=== PATIENT | female | born 1960 | race African-American/Black ===

== ENCOUNTER 2017-08-05 20:10 | Emergency (ER) | payer SELFPAY ==
[~2017-08-05] VITALS: Ht 165.1 cm; Wt 104.6 kg
[2017-08-05 20:34] VITALS: BP 156/90
== END 2017-08-06 02:00 | disposition left against medical advice (07) ==
LOC: ER 20:10
DX: R03.0 Elevated blood-pressure reading, without diagnosis of hypertension (principal); R51 Headache; M79.602 Pain in left arm; R07.89 Other chest pain; R05 Cough; Z53.21 Procedure and treatment not carried out due to patient leaving prior to being seen by health care provider
CPT/HCPCS: 93005